=== PATIENT | male | born 1985 | race Caucasian/White ===

== ENCOUNTER 2017-12-12 09:03 | Emergency (ER) | payer OTHER ==
[~2017-12-12] VITALS: Ht 180.3 cm; Wt 63.5 kg
[2017-12-12 09:48] LABS: BASOPHILS ABSOLUTE AUTO 0.07 K/mm3 (0.00-0.23); BASOPHILS PERCENT AUTO 0 % (0-2); EOSINOPHILS ABSOLUTE AUTO 0.02 K/mm3 (0.00-0.68); EOSINOPHILS PERCENT AUTO 0 % (0-6); Hematocrit 43.7 % (37.0-53.0); IMMATURE GRAN ABSOLUTE AUTO 0.07 K/mm3 (0.00-0.10); IMMATURE GRAN PERCENT AUTO 0 % (0-1); LYMPHOCYTES ABSOLUTE AUTO 0.98 K/mm3 (0.84-5.20); LYMPHOCYTES PERCENT AUTO 6 % (21-46); MONOCYTES ABSOLUTE AUTO 1.02 K/mm3 (0.16-1.47); MONOCYTES PERCENT AUTO 6 % (4-13); Mean Corpuscular HGB 32.3 pg (26.0-34.0); Mean Corpuscular HGB Conc 34.3 g/dL (31.5-36.5); Mean Corpuscular Volume 94 fL (80-100); Mean Platelet Volume 9.1 fL (9.1-12.4); NEUTROPHILS ABSOLUTE AUTO 15.71 K/mm3 (1.96-9.15); NEUTROPHILS PERCENT AUTO 88 % (41-73); Platelet Count 329 K/mm3 (150-400); RDW Standard Deviation 41.5 fL (35.1-46.3); Red Blood Cell Count 4.65 M/mm3 (4.30-5.90); White Blood Cell Count 17.87 K/mm3 (4.00-11.30)
[2017-12-12 10:08] LABS: Alanine Aminotransfer (ALT/SGP 23 U/L (12-78); Albumin, Blood 5.5 g/dL (3.4-5.0); Albumin/Globulin Ratio 1.2 (0.8-1.8); Alk Phos 54 U/L (50-136); Anion Gap 20 mmol/L (6-16); Aspartate Aminotrans (AST/SGOT 20 U/L (12-37); Bilirubin, Total 1.1 mg/dL (0.1-1.0); Blood Urea Nitrogen 14 mg/dL (8-24); Bun/Creatinine Ratio 20.9 (12.0-20.0); CO2, Blood 18 mmol/L (21-32); Calcium, Blood 9.8 mg/dL (8.5-10.1); Chloride, Blood 98 mmol/L (98-108); Creatinine, Blood 0.67 mg/dL (0.60-1.20); Globulin, Blood 4.4 g/dL (2.2-4.0); Glomerular Filtration Rate >60 (60-); Glucose, Blood 98 mg/dL (70-99); Potassium, Blood 3.9 mmol/L (3.5-5.5); Sodium, Blood 136 mmol/L (136-145); Total Protein, Blood 9.9 g/dL (6.4-8.2)
[2017-12-12 10:10] LABS: International Normalized Ratio 1.06
[2017-12-12 12:32] LABS: Source, Urine Clean Catch
[2017-12-12 12:36] LABS: Bilirubin, Urine Neg (Neg); Blood, Urine Neg (Neg); Glucose Qualitative, Urine Neg (Neg); Ketones, Urine 2+ (Neg); Leukocyte Esterase, Urine Neg (Neg); Nitrite, Urine Neg (Neg); Protein, Urine Neg (Neg); Urobilinogen, Urine NORM (Normal)
[2017-12-12 12:45] LABS: Appearance, Urine Clear (Clear); Color, Urine Yellow (P-Yellow)
[2017-12-12] MEDS ORDERED: BISA5EC PO (13:45)
[2017-12-12] MEDS ORDERED: CITRATE OF MAG296 ML PO (13:45)
[2018-02-01] MEDS ORDERED: METAMUCIL660 GM PO (13:57)
== END 2017-12-12 14:15 | disposition home or self-care (01) ==
LOC: ER 09:03
PROVIDERS: Emergency Medicine; Physician Assistant
DX: K92.2 Gastrointestinal hemorrhage, unspecified (principal); K59.00 Constipation, unspecified; N32.89 Other specified disorders of bladder; N28.1 Cyst of kidney, acquired
CPT/HCPCS: 36415; 74177; 80053; 81003; 85025; 85610; 85730; 93005; 93010; 96360; 96361; 99284; J7030; Q9967

== ENCOUNTER 2018-02-02 08:21 | Day surgery (SDC) | payer OTHER ==
[~2018-02-02] VITALS: Ht 180.3 cm; Wt 62.6 kg
[~2018-02-02 08:21] MED LIST: BISA5EC PO; CITRATE OF MAG296 ML PO; METAMUCIL660 GM PO
== END 2018-02-02 09:55 | disposition home or self-care (01) ==
LOC: ORSCMMR 08:21 → ORD 09:45 → ORSCMMR 09:45
PROVIDERS: Internal Medicine Gastroenterology
PROC: 0DJD8ZZ Inspection of Lower Intestinal Tract, Via Natural or Artificial Opening Endoscopic (ICD-10-PCS; principal; 2018-02-02 09:45)
DX: R19.4 Change in bowel habit (principal)
CPT/HCPCS: J7120